=== PATIENT | male | born 1970 | race Caucasian/White ===

== ENCOUNTER 2016-08-26 23:13 | Inpatient (IN) | payer OTHER ==
[~2016-08-26] VITALS: Ht 177.8 cm; Wt 94.8 kg
--- NOTE | 2016-08-26 23:22 | NUR ---
BIBA TO ER BED 8
--- NOTE | 2016-08-26 23:28 | NUR ---
Josephine west in [facility] - 08/26/16 at 2338 by MEDDM BIBA TO ER BED 6
--- NOTE | 2016-08-26 23:28 | NUR ---
PATIENT PRESENTS TO ED WITH C/O ALOC FROM HOME, PT WAS BIBA DUE TO BEING UNRESPONSIVE AT HOME. PT HAS DIALYSIS ON AND SAT SHUNT TO THE LEFT FA; BS 140 WITH ALL TOES AMPUTATED ON THE LEFT FOOT
[2016-08-26 23:33] VITALS: BP 96/44
[2016-08-26] MEDS ORDERED: SODIUM CHLORIDE FLUSH 10 ML SYR IVF ONE (23:35)
--- NOTE | 2016-08-26 23:35 | NUR ---
PT REFUSE AND COMBATIVE DURING LAB DRAW, PT ALSO STATES HE IS DIALYSIS AND CANNOT PRODUCE URINE, ER MD DR TAVAREZ MADE AWARE
[2016-08-27] LABS: BASOPHILS # (AUTO) 0.1 K/uL (0.00-0.22); BASOPHILS % (AUTO) 3.9 % (0.0-2.0); EOSINOPHILS % (AUTO) 0.8 % (0.0-4.0); HEMATOCRIT 38.8 % (36-52); HEMOGLOBIN 12.2 g/dL (12.0-18.0); LYMPHOCYTES # (AUTO) 0.6 K/uL (2.0-11.5); LYMPHOCYTES % (AUTO) 17.1 % (20.5-51.1); MEAN CORPUSCULAR HEMOGLOBIN 28 pg (27-31); MEAN CORPUSCULAR HGB CONC 32 g/dL (33-37); MEAN CORPUSCULAR VOLUME 90 fL (80-94); MONOCYTES # (AUTO) 0.4 K/uL (0.8-1.0); MONOCYTES % (AUTO) 9.9 % (1.7-9.3); NEUTROPHILS # (AUTO) 2.4 K/uL (1.8-7.7); NEUTROPHILS % (AUTO) 68.3 % (42.2-75.2); PLATELET COUNT (AUTO) 116 K/uL (140-450); RED BLOOD CELL COUNT(AUTO) 4.31 MIL/uL (4.20-6.10); RED CELL DISTRIBUTION WIDTH 14.7 % (11.6-13.7); WHITE BLOOD COUNT (AUTO) 3.5 K/uL (4.8-10.8)
[2016-08-27] MEDS ORDERED: CARB1TER PO (00:07)
[2016-08-27] MEDS ORDERED: VITA1SGL PO (00:07)
[2016-08-27] MEDS ORDERED: ZOLP10TA6 PO (00:07)
[2016-08-27] MEDS ORDERED: SIMV10TA1 PO (00:07)
[2016-08-27] MEDS ORDERED: OMEP20TC10 PO (00:07)
[2016-08-27] MEDS ORDERED: ONDA8TAB13 PO (00:07)
[2016-08-27] MEDS ORDERED: EZET10TA1 PO ×2 (00:07)
[2016-08-27] MEDS ORDERED: LISI-420 PO (00:07)
[2016-08-27] MEDS ORDERED: ALPR1TAB2 PO (00:07)
[2016-08-27] MEDS ORDERED: CARV12.5 PO (00:12)
[2016-08-27 00:16] LABS: ACETAMINOPHEN < 0.5 ug/ml (10-30); ALCOHOL, BLOOD < 3 mg/dL (<3); SALICYLATE < 2.8 mg/dL (2.8-20.0)
[2016-08-27 00:20] LABS: ALBUMIN 2.9 g/dL (3.4-5.0); ANION GAP 13.7 (8-16); CALCIUM 8.2 mg/dL (8.5-10.1); CARBON DIOXIDE 30.3 mmol/L (21-32); TOTAL BILIRUBIN 1.1 mg/dL (0.0-1.0); TOTAL PROTEIN, SERUM 8.1 g/dL (6.4-8.2)
[2016-08-27 00:21] LABS: INR 1.6 (0.8-1.2); PARTIAL THROMBOPLASTIN TIME 35.4 secs (22-35.6); PROTHROMBIN TIME 15.1 secs (10.8-13.4)
[2016-08-27 00:29] LABS: CREATININE 10.4 mg/dL (0.6-1.3)
--- NOTE | 2016-08-27 01:07 | NUR ---
ATTEMPTED TO GET IV ACCESS ONCE AGAIN, PT REFUSED, ER MD DR TAVAREZ MADE AWARE, DR TAVAREZ SAID TO HOLD IV ACCESS.
[2016-08-27] MEDS ORDERED: ONDANSETRON 4 MG/2 ML VIAL IVP PRN (01:15)
[2016-08-27] MEDS ORDERED: LORazepam 2 MG/ML VIAL IVP PRN (01:15)
--- NOTE | 2016-08-27 01:53 | NUR ---
Patient will be admitted to care of DR CONTRERAS . Admited to TELE 125B. Will go to room 125B. Belongings list completed. Report to ALLIE LADD .
--- NOTE | 2016-08-27 01:53 | NUR ---
Pt report given to ALLIE LADD . Transfer of care at this time.
--- NOTE | 2016-08-27 02:10 | NUR ---
ADMITTED 46 YEAR OLD FROM ER. PT ARRIVED TO UNIT VIA GURNEY. INITIAL ASSESSMENT COMPLETED. PT AAO4 BUT DROWSY. PT ABLE TO ANSWER QUESTIONS; HOWEVER, PT STATED THAT HE WANTS TO BE LEFT ALONE BECAUSE HE IS VERY TIRED. PT HAS EV SHUNT TO LEFT FOREARM. PT HAS IV TO RIGHT HAND G 20. PT HAS 02 2L NC. VS ARE STABLE. PT'S HAS WOUND ON RIGHT HEEL/ANCKLE. PT HAS LEFT TOES AMPUTATED. ORIENTED PT TO ROOM AND SURROUNDINGS AND EXPLAINED PLAN OF CARE. WILL CONTINUE TO MONITOR PT.
[2016-08-27 04:00] VITALS: BP 117/78
--- NOTE | 2016-08-27 04:15 | NUR ---
SCDS AT BEDSIDE. PT STATED HE DOES NOT WANT TO WEAR THEM AT THIS TIME. WILL CONTINUE TO MONITOR PT.
--- NOTE | 2016-08-27 05:25 | NUR ---
PT REQUESTED PUDDING AND JUICE. PT ALSO REQUESTED TO HAVE TV ON. ALL NEEDS MET AT THIS TIME. WILL CONTINUE TO MONITOR PT.
--- NOTE | 2016-08-27 07:25 | NUR ---
ENDORSED PLAN OF CARE TO JULEE JEAN PT IN STABLE CONDITION.
--- NOTE | 2016-08-27 07:25 | NUR ---
RECEIVED REPORT FROM NIGHT NURSE. PT IS AAOX4, ON O2 2L VIA NC, AV SHUNT TO LEFT ARM, IV TO RIGHT HAND 20G SALINE LOCK PATENT AND INTACT. RIGHT ANKLE DRESSING DRY AND INTACT, LEFT FOOT TOES AMPUTATED. INITIAL ASSESSMENT COMPLETED, REVIEWED PLAN OF CARE WITH PT, PT VERBALIZED UNDERSTANDING. AL SAFETY PRECAUTIONS MET. CALL LIGHT WITHIN REACH. WILL CONTINUE TO MONITOR.
[2016-08-27 08:00] VITALS: BP 121/84
--- NOTE | 2016-08-27 08:03 | NUR ---
PATIENT HAS BEEN SCREENED AND CATEGORIZED HIGH NUTRITION RISK. PATIENT WILL BE SEEN WITHIN 1-2 DAYS OF ADMISSION. 08/27/16-08/28/[address]
[2016-08-27 09:20] LABS: CREATINE KINASE MB 2.5 ng/mL (0-3.6)
[2016-08-27] MEDS: MORPHINE SULFATE 2 MG/ML SYR IVP PRN ×2 (09:53→21:23)
[2016-08-27] MEDS ORDERED: HEPARIN PER PHARMACY MC PRN (10:20)
[2016-08-27] MEDS ORDERED: hePARIN / DEXT 5% PREMIX 250 ML IV SCH ×2 (10:20→11:30)
[2016-08-27] MEDS ORDERED: EZETIMIBE 10 MG TAB PO SCH (10:22)
[2016-08-27] MEDS ORDERED: LISINOPRIL 20 MG TAB PO SCH (10:22)
[2016-08-27] MEDS ORDERED: PANTOPRAZOLE 40 MG TABEC PO SCH (10:23)
[2016-08-27] MEDS ORDERED: VIT-B COMP/VIT-C/FOLIC ACID 1 TAB PO SCH (10:24)
--- NOTE | 2016-08-27 10:51 | NUR ---
DUE MEDICATION GIVEN, LISINOPRIL NOT GIVEN BP WNL. ALL NEEDS MET. CALL LIGHT WITHIN REACH. WILL CONTINUE TO MONITOR.
[2016-08-27] MEDS ORDERED: ALPRAZolam 0.5 MG TAB PO SCH (10:52)
--- NOTE | 2016-08-27 11:45 | NUR ---
INITIAL HEPARIN DRIP STARTED AT 10ML/HR. ALL SAFETY NEEDS MET. CALL LIGHT WITHIN REACH, WILL CONTINUE TO MONITOR.
[2016-08-27 12:00] VITALS: BP 112/76
--- NOTE | 2016-08-27 14:05 | NUR ---
PT CURRENTLY RESTING IN BED ALL NEEDS MET. ALL SAFETY NEEDS MET. CALL LIGHT WITHIN REACH. WILL CONTINUE TO MONITOR.
[2016-08-27] MEDS ORDERED: ALBUTEROL SULFATE/IPRATROPIU 3 ML SOL IH PRN ×2 (14:45→15:35)
[2016-08-27] MEDS ORDERED: INSULIN LISPRO SLIDING SCALE 100 UNITS/ML VIAL SUBQ PRN (15:45)
[2016-08-27] MEDS ORDERED: DEXTROSE 50% 50 ML SYR IVP PRN (15:45)
[2016-08-27 16:00] VITALS: BP 116/80
[2016-08-27] MEDS: BLOOD GLUCOSE MONITORING 1 DEV DEV FS SCH ×2 (16:54→21:28)
[2016-08-27] MEDS: CARVEDILOL 12.5 MG TAB PO SCH (17:00)
--- NOTE | 2016-08-27 17:14 | NUR ---
PT CURRENTLY GETTING HEMODIALYSIS, COREG NOT GIVEN. ALL NEEDS MET. CALL LIGHT WITHIN REACH. WILL CONTINUE TO MONITOR.
[2016-08-27 17:21] LABS: CREATINE KINASE MB 2.7 ng/mL (0-3.6)
[2016-08-27] MEDS ORDERED: ACETYLCYSTEINE 10% (100 MG/ML) 100 MG/ML VIAL INH PRN (17:40)
[2016-08-27] MEDS: ALBUTEROL SULFATE/IPRATROPIU 3 ML SOL IH SCH ×2 (19:00→23:02)
--- NOTE | 2016-08-27 19:21 | NUR ---
ENDORSED PLAN OF CARE TO NIGHT NURSE PT IN STABLE CONDITION.
--- NOTE | 2016-08-27 19:25 | NUR ---
RECEIVED REPORT FROM JULEE FLORES. INITIAL ASSESSMENT COMPETED. PT AAOX4. PT RECEIVING DIALYSIS AT THIS TIME. PT STABLE. VS ARE STABLE. PT'S HAS WOUND ON RIGHT HEEL/ANCKLE COVERED WITH DRESSING. PT HAS LEFT TOES AMPUTATED. PT HAS IV TO RIGHT HAND G 20 SL. PT HAS AV SHUNT ON LEFT FOREARM. PT ON 02 2L NC. ORIENTED PT TO ROOM AND SURROUNDINGS AND EXPLAINED PLAN OF CARE. WILL CONTINUE TO MONITOR PT.
[2016-08-27 20:00] VITALS: BP 132/97
--- NOTE | 2016-08-27 20:35 | NUR ---
DIALYSIS COMPLETED. OUTPUT THREE LITERS. PT STABLE.
[2016-08-27] MEDS ORDERED: CARBIDOPA/LEVODOPA 50/200 MG TABER PO SCH (21:00)
[2016-08-27] MEDS ORDERED: SIMVASTATIN 10 MG TAB PO SCH (21:00)
[2016-08-27] MEDS ORDERED: ZOLPIDEM 10 MG TAB PO PRN (21:00)
[2016-08-27] MEDS ORDERED: ZOLPIDEM 10 MG TAB PO SCH (21:00)
--- NOTE | 2016-08-27 21:15 | NUR ---
US TECH AT BEDSIDE.
--- NOTE | 2016-08-27 21:21 | NUR ---
PT COMPLAINING OF RIGHT FOOT PAIN 12/11. VS STABLE, WILL MEDICATE ORDERED.
[2016-08-27] MEDS: ALPRAZolam 0.5 MG TAB PO SCH (21:24)
--- NOTE | 2016-08-27 21:28 | NUR ---
PT TOLERATED 2100 MEDS WELL. WILL CONTINUE TO MONITOR PT.
--- NOTE | 2016-08-27 23:37 | NUR ---
I SPOKE WITH JAYLEN FROM [facility] TO NOTIFY HER THAT DR. CARRIZALES PUT AN ORDER FOR HEMODIALYSIS TOMORROW 08/28. JAYLEN STATED THAT PT JUST RECEIVED DIALYSIS TODAY. JAYLEN STATED THAT SHE WOULD CONTACT DR. CARRIZALES IN THE MORNING TO VERIFY ORDER.
[2016-08-28] VITALS: BP 109/69
--- NOTE | 2016-08-28 01:48 | NUR ---
PT STABLE, PT WATCHING TV. PT REQUESTED A SNACK; CRACKERS AND JUICE GIVEN. ALL NEEDS MET AT THIS TIME. WILL CONTINUE TO MONITOR PT.
[2016-08-28] MEDS: ALBUTEROL SULFATE/IPRATROPIU 3 ML SOL IH SCH ×4 (03:00→15:38)
--- NOTE | 2016-08-28 03:38 | NUR ---
PT REFUSED HHN TX, HE WANTS TO SLEEP, RN NOTIFIED, PT IS NOT SOB OR DISTRESS
--- NOTE | 2016-08-28 03:40 | NUR ---
RT AT BEDSIDE. PT REFUSED BREATHING TREATMENT.
[2016-08-28 04:00] VITALS: BP 118/71
--- NOTE | 2016-08-28 05:00 | NUR ---
PT SLEEPING. NO SIGNS OF DISTRESS NOTED. CALL LIGHT WITHIN REACH.
[2016-08-28] MEDS: BLOOD GLUCOSE MONITORING 1 DEV DEV FS SCH ×3 (06:23→16:30)
[2016-08-28 06:30] LABS: BASOPHILS % (AUTO) 0.5 % (0.0-2.0); EOSINOPHILS # (AUTO) 0.3 K/uL (0-0.4); EOSINOPHILS % (AUTO) 5.9 % (0.0-4.0); HEMATOCRIT 34.6 % (36-52); HEMOGLOBIN 11.1 g/dL (12.0-18.0); LYMPHOCYTES # (AUTO) 1.6 K/uL (2.0-11.5); LYMPHOCYTES % (AUTO) 27.8 % (20.5-51.1); MEAN CORPUSCULAR HEMOGLOBIN 29 pg (27-31); MEAN CORPUSCULAR HGB CONC 32 g/dL (33-37); MEAN CORPUSCULAR VOLUME 90 fL (80-94); MONOCYTES # (AUTO) 0.5 K/uL (0.8-1.0); MONOCYTES % (AUTO) 8.1 % (1.7-9.3); NEUTROPHILS # (AUTO) 3.3 K/uL (1.8-7.7); NEUTROPHILS % (AUTO) 57.7 % (42.2-75.2); PLATELET COUNT (AUTO) 144 K/uL (140-450); RED BLOOD CELL COUNT(AUTO) 3.86 MIL/uL (4.20-6.10); RED CELL DISTRIBUTION WIDTH 14.5 % (11.6-13.7); WHITE BLOOD COUNT (AUTO) 5.7 K/uL (4.8-10.8)
[2016-08-28] MEDS ORDERED: PANTOPRAZOLE 40 MG TABEC PO SCH (06:30)
[2016-08-28 06:43] LABS: ALBUMIN 2.4 g/dL (3.4-5.0); CALCIUM 7.6 mg/dL (8.5-10.1); CARBON DIOXIDE 33.7 mmol/L (21-32); MAGNESIUM 1.9 mg/dL (1.8-2.4); POTASSIUM 3.7 mmol/L (3.5-5.1); TOTAL BILIRUBIN 0.7 mg/dL (0.0-1.0); TOTAL PROTEIN, SERUM 6.8 g/dL (6.4-8.2)
[2016-08-28 07:09] LABS: CREATININE 7.7 mg/dL (0.6-1.3)
--- NOTE | 2016-08-28 07:10 | NUR ---
RECEIVED CRITICAL LAB VALUE CREATININE 7.7 DR. JUAN SIFUENTES.
--- NOTE | 2016-08-28 07:36 | NUR ---
ENDORSED PLAN OF CARE TO DAY SHIFT NURSE. PT IN STABLE CONDITION.
[2016-08-28 08:00] VITALS: BP 101/70
[2016-08-28] MEDS: CARVEDILOL 12.5 MG TAB PO SCH ×2 (08:00→17:00)
[2016-08-28] MEDS ORDERED: LISINOPRIL 20 MG TAB PO SCH (09:00)
[2016-08-28] MEDS ORDERED: VIT-B COMP/VIT-C/FOLIC ACID 1 TAB PO SCH (09:00)
[2016-08-28] MEDS ORDERED: EZETIMIBE 10 MG TAB PO SCH (09:00)
[2016-08-28] MEDS: ALPRAZolam 0.5 MG TAB PO SCH (09:10)
--- NOTE | 2016-08-28 09:12 | NUR ---
DUE MEDICATIONS GIVEN. PT CURRENTLY EATING BREAKFAST. ALL NEEDS MET. CALL LIGHT WITHIN REACH. WILL CONTINUE TO MONITOR.
--- NOTE | 2016-08-28 11:53 | NUR ---
PT CURRENTLY VISITING WITH FRIENDS. NO S/S OF DISTRESS OR DISCOMFORT NOTED. ALL NEEDS MET. CALL LIGHT WITHIN REACH. WILL CONTINUE TO MONITOR.
[2016-08-28 12:00] VITALS: BP 113/82
--- NOTE | 2016-08-28 14:25 | NUR ---
PT CURRENTLY SLEEPING NO S/S OF DISTRESS NOTED. CALL LIGHT WITHIN REACH. WILL CONTINUE TO MONITOR.
[2016-08-28 16:00] VITALS: BP 141/91
--- NOTE | 2016-08-28 17:25 | NUR ---
PARACENTESIS TAKING PLACE AT BEDSIDE AT THIS TIME.
--- NOTE | 2016-08-28 18:35 | NUR ---
PT WANTS TI SIGNED AMA, EDUCATED PT ON RISK AND BENEFIT , PT VERBALIZED UNDERSTANDING BUT STATES HE WANTS TO GO AMA. AWARE.
--- NOTE | 2016-08-28 18:46 | NUR ---
PT SIGNED AMA PAPERWORK, IV REMOVED TIP INTACT. ALL ARM BANDS REMOVED. PT WAS PICKED UP BY FRIEND AND WALKED OUT TO FRONT LOBBY.
[2016-08-28 19:49] LABS: APPEARANCE,UNSPUN,BODY FLUID CLEAR (CLEAR); SPECIMENTYPE,BODY FLUID PERITONEAL
[2016-08-28 19:50] LABS: APPEARANCE,SPUN,BODY FLUID CLEAR (CLEAR); COLOR,BODY FLUID YELLOW (LT YELLOW); RBC, BODY FLUID 135 /cu. mm.; TOTAL VOLUME,BODY FLUID 3.5 mL; WBC, BODY FLUID 41 /cu. mm.
[2016-08-28 20:10] LABS: MONONUCLEAR, BODY FLUID 100 %; POLYNUCLEAR, BODY FLUID 0 %
[2016-08-28 20:30] LABS: ALBUMIN,BODY FLUID 2.3 g/dL; GLUCOSE,BODY FLUID 115 mg/dL; PROTEIN, BODY FLUID 5.4 g/dL
[2016-08-28 20:42] LABS: LDH,BODY FLUID 141 U/L
[2016-08-28] MEDS ORDERED: CARBIDOPA/LEVODOPA 25/100 TAB PO SCH (21:00)
== END 2016-08-28 18:45 | disposition left against medical advice (07) | DRG 291 ==
LOC: MED 23:13 → MMU 08-27 01:18 → MTU 08-27 23:10
PROVIDERS: ADMIT Family Medicine; ATTEND Family Medicine
PROC: 5A1D00Z (ICD-10-PCS; principal; 2016-08-27)
DX: I13.2 Hypertensive heart and chronic kidney disease with heart failure and with stage 5 chronic kidney disease, or end stage renal disease (principal); N18.6 End stage renal disease; E43 Unspecified severe protein-calorie malnutrition; I50.43 Acute on chronic combined systolic (congestive) and diastolic (congestive) heart failure; N17.0 Acute kidney failure with tubular necrosis; G93.49 Other encephalopathy; D68.9 Coagulation defect, unspecified; L97.419 Non-pressure chronic ulcer of right heel and midfoot with unspecified severity; E87.1 Hypo-osmolality and hyponatremia; R18.8 Other ascites; R74.0 Nonspecific elevation of levels of transaminase and lactic acid dehydrogenase [LDH]; E11.22 Type 2 diabetes mellitus with diabetic chronic kidney disease; E11.40 Type 2 diabetes mellitus with diabetic neuropathy, unspecified; E11.622 Type 2 diabetes mellitus with other skin ulcer; G47.00 Insomnia, unspecified; L98.499 Non-pressure chronic ulcer of skin of other sites with unspecified severity; E66.9 Obesity, unspecified; G25.81 Restless legs syndrome; F41.9 Anxiety disorder, unspecified; B35.1 Tinea unguium; K21.9 Gastro-esophageal reflux disease without esophagitis; F12.90 Cannabis use, unspecified, uncomplicated; D63.1 Anemia in chronic kidney disease; E78.00 Pure hypercholesterolemia, unspecified; E78.5 Hyperlipidemia, unspecified; B19.20 Unspecified viral hepatitis C without hepatic coma; K74.69 Other cirrhosis of liver; E87.5 Hyperkalemia; I25.10 Atherosclerotic heart disease of native coronary artery without angina pectoris; Z89.422 Acquired absence of other left toe(s); Z95.1 Presence of aortocoronary bypass graft; Z68.30 Body mass index [BMI] 30.0-30.9, adult; Z79.899 Other long term (current) drug therapy; Z71.3 Dietary counseling and surveillance; Z99.2 Dependence on renal dialysis; Z87.891 Personal history of nicotine dependence; Z83.3 Family history of diabetes mellitus
CPT/HCPCS: 36415; 71010; 76700; 76705; 80053; 82140; 82550; 82553; 82945; 82948; 83036; 83605; 83615; 83735; 83880; 84100; 84157; 84484; 85025; 85610; 85730; 87040; 87081; 89051; 90935; 93005; 93925; 93970; 94640; 99285; G0480; G0482; J1644; J1815; J2270; J7030; J7620; Q0092